=== PATIENT | male | born 1960 | race Caucasian/White ===

== ENCOUNTER 2016-04-18 12:30 | Observation (INO) | payer OTHER ==
[~2016-04-18] VITALS: Ht 175.3 cm; Wt 98.0 kg
[2016-04-18] VITALS (8 sets, daily range): BP systolic 127–166; BP diastolic 70–85; PULSE 60–78; RESP 14–20; TEMP 97.6–98.3; O2SAT 95–99
[~2016-04-18 12:30] MED LIST: ASPI325T PO; LISI-363 PO; METO25 PO; RANI150 PO; ROBA750T3 PO; Z.0.WALKERFRONT
[2016-04-18] MEDS ORDERED: ROBA750T PO (15:38)
[2016-04-18] MEDS ORDERED: LISI40TA PO (15:38)
[2016-04-18] MEDS ORDERED: ASPI325T PO (15:38)
[2016-04-18] MEDS ORDERED: METO25TA3 PO (15:38)
[2016-04-18] MEDS ORDERED: SODIUM CHLORIDE 0.9% FLUSH 5 ML FLUSH IVF PRN ×2 (15:45→16:45)
--- NOTE | 2016-04-18 15:50 | PD ---
HPI Chief Complaint: Chest Pain Time Seen by Provider: 15:42 Travel History International Travel<30 days: No Contact w/Intl Traveler<30days: No Traveled to known affect area: No History of Present Illness HPI 55-year-old white male presents to emergency Department with complaints of chest pain. The patient has a history of sick sinus syndrome, pacemaker, hypertension and borderline hypercholesterolemia, GERD. He states that he has been having intermittent chest pain now for the past 2 days. He states that he has not had chest pain in the past. He typically takes an aspirin a day. He did take his aspirin today. He presents without pain currently. He states that he has had several episodes lasting minutes at a time. He sometimes gets associated shortness of breath. He is had what he reports is a pain in his anterior chest, and sometimes a funny feeling in his left arm. The patient denies any associated nausea or vomiting. No diaphoresis. He states the pain came on at rest. He denies any exertional chest pain. He does have limited exercise tolerance due to chronic back pain and ambulates with a cane. 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 The patient states that he has seen Dr. fierro who had placed his pacemaker. He has not had a stress test or a cardiac catheterization in the past. PFSH Past Medical History Arthritis: Yes Asthma: Yes Anxiety: No Depression: No Heart Rhythm Problems: Yes (hx of murmur) Cancer: Yes (SKIN) Cardiovascular Problems: Yes (PACEMAKER ) High Cholesterol: Yes (hx of) Chest Pain: Yes Diabetes: No Endocrine: No Gastrointestinal Disorders: Yes (GERD) GERD: Yes Genitourinary: No Hepatitis: No Hiatal Hernia: No Hypertension: Yes Immune Disorder: No Implanted Vascular Access Dvce: Yes Musculoskeletal: Yes (ARTHRITIS, SP. STENOSIS) Neurologic: Yes (LEFT SCIATIC NERVE PAIN) Psychiatric: No Respiratory: Yes (ASTHMA HX) Thyroid Disease: No Tetanus Vaccination: > 5 Years Past Surgical History Abdominal Surgery: Yes (APPY) AICD: No Appendectomy: Yes Cardiac Surgery: Yes (BIOTRONIK PACEMAKER) Joint Replacement: No Pacemaker: Yes (BIOTRONIK) Other Surgery: Yes Family History Narrative Family History Father in his 70s of a stroke, history of coronary artery disease and RI. Mother is currently alive without heart disease. Family Myocardial Infarction: Yes Social History Alcohol Use: No Tobacco Use: No Substance Use: No Allergies-Medications (Allergen,Severity, Reaction): Coded Allergies: Toradol (Unverified Allergy, Unknown, "FLAT LINE', 01/10/16) Reported Meds & Prescriptions Reported Meds & Active Scripts Active Walker Front Wheel (Z.0.walkerfront) Device 1 Unit Zantac 150 Mg Tab (Ranitidine HCl) 150 Mg Tab 150 Mg PO Q12 Reported Lisinopril 40 Mg Tab 40 Mg PO DAILY Metoprolol Tartrate 25 Mg Tab 25 Mg PO BID Aspirin 325 Mg Tab 325 Mg PO ONCE Robaxin (Methocarbamol) 750 Mg Tab 750 Mg PO QID Robaxin-750 (Methocarbamol) 750 Mg Tab 750 Mg PO TID Metoprolol Tartrate 25 mg (Metoprolol Tartrate) 25 Mg Tab 25 Mg PO BID Aspirin 325 mg (Aspirin) 325 Mg Tab 325 Mg PO DAILY Lisinopril 20 mg (Lisinopril) 20 Mg Tab 40 Mg PO DAILY Review of Systems Except as stated in HPI: all other systems reviewed are Neg General / Constitutional: No: Fever, Chills Eyes: No: Blurred Vision, Pain HENT: No: Headaches, Sore Throat Cardiovascular: Positive: Chest Pain or Discomfort, No: Palpitations, Tachycardia, Diaphoresis, Dyspnea on exertion Respiratory: Positive: Shortness of Breath, No: Cough, Wheezing Gastrointestinal: No: Nausea, Vomiting, Abdominal Pain Genitourinary: No: Frequency, Dysuria Musculoskeletal: Positive: Myalgias, Arthralgias, Limited ROM, Cramping, Pain Skin: No Rash, No Itching Neurologic: Positive: Headache, No: Weakness, Paresthesia Psychiatric: No: Anxiety, Depression Physical Exam Narrative GENERAL: Well-developed, well-nourished in no apparent distress. Nontoxic appearing. HEAD: Normocephalic, atraumatic. EYES: Pupils equal round and reactive. Extraocular motions intact. No scleral icterus. No injection or drainage. ENT: Nose clear. Throat without erythema, tonsillar hypertrophy or exudate. Uvula midline. Airway patent. NECK: Trachea midline. Supple, nontender, moves head freely. No central bony tenderness or spasm. CARDIOVASCULAR: Regular rate and rhythm without murmurs, gallops, or rubs. CHEST: Nontender throughout without deformity or crepitance. No retractions or use of accessory muscles. RESPIRATORY: Clear to auscultation. Breath sounds equal bilaterally. No wheezes , rales, or rhonchi. GASTROINTESTINAL: Abdomen soft, non-tender, nondistended. No hepato-splenomegaly , or palpable masses. No guarding. EXTREMITIES: No clubbing, cyanosis, or edema. No joint tenderness. No calf tenderness. BACK: Nontender without deformity. No flank tenderness. NEUROLOGICAL: Awake, alert and oriented x 3 .Cranial nerves grossly intact. Motor and sensory grossly within normal limits. Normal speech. Data Data Last Documented VS Vital Signs Date Time Temp Pulse Resp B/P Pulse Ox O2 Delivery O2 Flow Rate FiO2 04/18/16 12:32 98.3 60 14 166/85 99 Room Air Orders Electrocardiogram (04/18/16 ) Basic Metabolic Panel (Bmp) (04/18/16 15:40) Ckmb (Isoenzyme) Profile (04/18/16 15:40) Complete Blood Count With Diff (04/18/16 15:40) Magnesium (Mg) (04/18/16 15:40) Prothrombin Time / Inr (Pt) (04/18/16 15:40) Act Partial Throm Time (Ptt) (04/18/16 15:40) Troponin I (04/18/16 15:40) Chest, Single Ap (04/18/16 15:40) Ecg Monitoring (04/18/16 15:40) Bilateral Bp Monitoring (04/18/16 15:40) Iv Access Insert/Monitor (04/18/16 15:40) Oximetry (04/18/16 15:40) Oxygen Administration (04/18/16 15:40) Sodium Chloride 0.9% Flush (Ns Flush) (04/18/16 15:45) CKMB (04/18/16 15:45) CKMB% (04/18/16 15:45) Labs Laboratory Tests Test 04/18/16 15:45 White Blood Count 8.9 TH/MM3 Red Blood Count 5.08 MIL/MM3 Hemoglobin 15.4 GM/DL Hematocrit 45.8 % Mean Corpuscular Volume 90.2 FL Mean Corpuscular Hemoglobin 30.4 PG Mean Corpuscular Hemoglobin 33.6 % Concent Red Cell Distribution Width 12.2 % Platelet Count 268 TH/MM3 Mean Platelet Volume 9.3 FL Neutrophils (%) (Auto) 65.8 % Lymphocytes (%) (Auto) 23.3 % Monocytes (%) (Auto) 8.6 % Eosinophils (%) (Auto) 1.6 % Basophils (%) (Auto) 0.7 % Neutrophils # (Auto) 5.9 TH/MM3 Lymphocytes # (Auto) 2.1 TH/MM3 Monocytes # (Auto) 0.8 TH/MM3 Eosinophils # (Auto) 0.1 TH/MM3 Basophils # (Auto) 0.1 TH/MM3 CBC Comment DIFF FINAL Differential Comment Prothrombin Time 10.5 SEC Prothromb Time International 1.0 RATIO Ratio Activated Partial 26.8 SEC Thromboplast Time Sodium Level 140 MEQ/L Potassium Level 4.0 MEQ/L Chloride Level 106 MEQ/L Carbon Dioxide Level 24.2 MEQ/L Anion Gap 10 MEQ/L Blood Urea Nitrogen 14 MG/DL Creatinine 1.05 MG/DL Estimat Glomerular Filtration 73 ML/MIN Rate Random Glucose 112 MG/DL Calcium Level 9.3 MG/DL Magnesium Level 2.1 MG/DL Total Creatine Kinase 189 U/L Troponin I LESS THAN 0.02 NG/ML MDM Medical Decision Making Medical Screen Exam Complete: Yes Emergency Medical Condition: Yes Medical Record Reviewed: Yes Interpretation(s) Laboratory Tests Test 04/18/16 15:45 White Blood Count 8.9 TH/MM3 Red Blood Count 5.08 MIL/MM3 Hemoglobin 15.4 GM/DL Hematocrit 45.8 % Mean Corpuscular Volume 90.2 FL Mean Corpuscular Hemoglobin 30.4 PG Mean Corpuscular Hemoglobin 33.6 % Concent Red Cell Distribution Width 12.2 % Platelet Count 268 TH/MM3 Mean Platelet Volume 9.3 FL Neutrophils (%) (Auto) 65.8 % Lymphocytes (%) (Auto) 23.3 % Monocytes (%) (Auto) 8.6 % Eosinophils (%) (Auto) 1.6 % Basophils (%) (Auto) 0.7 % Neutrophils # (Auto) 5.9 TH/MM3 Lymphocytes # (Auto) 2.1 TH/MM3 Monocytes # (Auto) 0.8 TH/MM3 Eosinophils # (Auto) 0.1 TH/MM3 Basophils # (Auto) 0.1 TH/MM3 CBC Comment DIFF FINAL Differential Comment Prothrombin Time 10.5 SEC Prothromb Time International 1.0 RATIO Ratio Activated Partial 26.8 SEC Thromboplast Time Sodium Level 140 MEQ/L Potassium Level 4.0 MEQ/L Chloride Level 106 MEQ/L Carbon Dioxide Level 24.2 MEQ/L Anion Gap 10 MEQ/L Blood Urea Nitrogen 14 MG/DL Creatinine 1.05 MG/DL Estimat Glomerular Filtration 73 ML/MIN Rate Random Glucose 112 MG/DL Calcium Level 9.3 MG/DL Magnesium Level 2.1 MG/DL Total Creatine Kinase 189 U/L Troponin I LESS THAN 0.02 NG/ML EK% paced rhythm with a dual-chamber pacer ventricular rate of 60 Differential Diagnosis Medical decision making: High Differential diagnosis: Angina, RI, unstable angina, pneumonia, electrolyte abnormality, GERD, noncardiac chest pain Narrative Course The patient's EKG today is a 100% paced rhythm at 60. He is alert he taken a 325 aspirin earlier this morning. The patient is currently pain-free. The patient states that he's been having intermittent pain now for the past 2 days. His is nonexertional in nature and lasts only a few minutes and resolves spontaneously. He does have a history of GERD has not taken any medications recently. I discussed with the patient and her observation period in the chest pain center with potential stress testing. The patient reminds me that he has limited mobility and walks with a cane. This is chest pain Diagnosis Primary Impression: Chest pain Qualified Code: R07.9 - Chest pain, unspecified type Condition: Arun Mac Apr 18, 2016 15:50
[2016-04-18 16:09] LABS: AUTOMATED NEUTROPHIL # 5.9 TH/MM3 (1.8-7.7); BASOPHIL # 0.1 TH/MM3 (0-0.2); BASOPHIL % 0.7 % (0.0-2.0); EOSINOPHIL # 0.1 TH/MM3 (0-0.4); EOSINOPHIL % 1.6 % (0.0-4.0); HEMATOCRIT 45.8 % (39.0-51.0); HEMO FLAGS DIFF FINAL; LYMPH % 23.3 % (9.0-44.0); LYMPHOCYTE # 2.1 TH/MM3 (1.0-4.8); MEAN CELL VOLUME 90.2 FL (80.0-100.0); MEAN CORPUSCULAR HEMOGLOBIN 30.4 PG (27.0-34.0); MEAN CORPUSCULAR HGB CONC 33.6 % (32.0-36.0); MONO % 8.6 % (0.0-8.0); NEUT % 65.8 % (16.0-70.0); PLATELET COUNT 268 TH/MM3 (150-450); RED BLOOD COUNT 5.08 MIL/MM3 (4.50-5.90); RED CELL DISTRIBUTION WIDTH 12.2 % (11.6-17.2); WHITE BLOOD COUNT 8.9 TH/MM3 (4.0-11.0)
--- NOTE | 2016-04-18 16:15 | RADRPT ---
EXAM DATE/TIME: 04/18/2016 15:46 [facility] COMPARISON: CHEST SINGLE AP, May 04, 2014, 9:31. INDICATIONS : Chest pain. MEDICAL HISTORY : None. SURGICAL HISTORY : Pacemaker. ENCOUNTER: Initial ACUITY: 1 day PAIN SCORE: 8/10 LOCATION: Bilateral chest FINDINGS: A single view of the chest demonstrates the lungs to be symmetrically aerated without evidence of mas s, infiltrate or effusion. The cardiomediastinal contours are unremarkable. There is a pacemaker ov erlying the left chest. Osseous structures are intact. No significant [facility]. CONCLUSION: No acute disease. No significant change has occurred. Wilfred Novak MD on April 18, 2016 at 16:13 Board Certified Radiologist. This report was verified electronically.
[2016-04-18 16:20] LABS: APTT (PATIENT) 26.8 SEC (24.3-30.1); PROTHROMBIN TIME - PATIENT 10.5 SEC (9.8-11.6)
[2016-04-18 16:29] LABS: ANION GAP 10 MEQ/L (5-15); BICARBONATE 24.2 MEQ/L (21.0-32.0); BLOOD UREA NITROGEN 14 MG/DL (7-18); CHLORIDE 106 MEQ/L (98-107); GLOMERULAR FILTRATION RATE 73 ML/MIN (>89); MAGNESIUM 2.1 MG/DL (1.5-2.5); SODIUM (NA) 140 MEQ/L (136-145)
[2016-04-18 16:32] LABS: CREATINE KINASE 189 U/L (39-308)
[2016-04-18 16:44] LABS: CKMB 0.9 NG/ML (0.5-3.6)
[2016-04-18 19:46] LABS: CREATINE KINASE 162 U/L (39-308)
[2016-04-18 20:22] LABS: CKMB 1.3 NG/ML (0.5-3.6)
[2016-04-18] MEDS: SODIUM CHLORIDE 0.9% FLUSH 5 ML FLUSH IVF SCH (21:00)
[2016-04-19] VITALS (7 sets, daily range): BP systolic 101–140; BP diastolic 54–81; PULSE 63–70; RESP 16–20; TEMP 96.4–98; O2SAT 95–96
[2016-04-19] MEDS: SODIUM CHLORIDE 0.9% FLUSH 5 ML FLUSH IVF SCH (09:29)
[2016-04-19] MEDS ORDERED: LISINOPRIL 20 MG TAB PO SCH (12:00)
--- NOTE | 2016-04-19 12:46 | MH ---
cc: RAUL SHEPHERD MD DATE OF ADMISSION: 04/18/2016 DATE OF 1960 CHIEF COMPLAINT Chest pain HISTORY OF PRESENT ILLNESS This is a 55-year-old male who presented to the ED via private vehicle complaining of three days of developing chest pain three days ago. It began while he was at work. It was left-sided and lasted a couple minutes. It recurred the next day lasting also a couple minutes. Then it became more frequent yesterday recurring quite often, but still lasted two minute or less. He has had no associated shortness, nausea or diaphoresis with the symptoms. Denies any history of CAD. PAST HISTORY 1. He has a history of six sinus syndrome. 2. He has a pacemaker. 3. History of chronic back pain. 4. Hypertension 5. Denies hyperlipidemia, diabetes or known CAD. FAMILY HISTORY He is not really not sure about family history of CAD. SOCIAL HISTORY Does not smoke, drink alcohol, or use illicit drugs. PAST SURGICAL HISTORY Pacemaker. ALLERGIES TORADOL MEDICATIONS Include: 1. Lisinopril 40 mg daily 2. Metoprolol Tartrate 25 mg twice daily 3. Robaxin 750 mg 4 time a day for spasms 4. A full strength aspirin REVIEW OF SYSTEMS GENERAL: Denies fevers or chills. Denies recent illnesses. HEENT: Denies headache, earache, sore throat or difficulty swallowing. CARDIOVASCULAR: Describes the discomfort as mentioned above. Denies diaphoresis. Denies sensation of heart beating rapidly or irregularly. Denies syncope. RESPIRATORY: Denies shortness of breath or inspirational chest discomfort. Denies coughing, wheezing or hemoptysis. GI: Denies nausea, vomiting, diarrhea, abdominal pain or blood in the stool. MUSCULOSKELETAL: Denies joint pain or edema. Denies calf pain or edema. NEUROVASCULAR: Denies headache or dizziness. ENDOCRINE: Denies polyuria or polydipsia. HEMATOLOGIC: No easy bruising. SKIN: Denies rash or itching. PHYSICAL EXAMINATION VITAL SIGNS: In emergency room initially included a blood pressure 166/85, heart rate 60, respirations 14, pulse oximetry 90% on room air and he was afebrile. Most recent vital signs include a blood pressure 132/81, heart rate 66, respirations 16, pulse oximetry 95% on room air and he was afebrile. GENERAL: The patient seen in the examination room in no apparent distress. He is pleasant. He speaks in clear and complete sentences. HEENT: Head is atraumatic, normocephalic. NECK: Supple without lymphadenopathy and trachea is midline. No JVD or carotid bruit. CARDIOVASCULAR: Cardiovascular: Regular rhythm without murmur, gallop or rub. RESPIRATORY: Lungs are clear to auscultation bilaterally. No wheezing, rales or rhonchi. No reproducible chest wall discomfort. No use of accessory muscles. GI: Abdomen is nontender and nondistended. Bowel sounds are normal. No guarding or rebound. No obvious pulsatile mass or bruit. No CVA tenderness. Strong femoral pulses bilaterally. MUSCULOSKELETAL: Patient moving upper and lower stress freely. No joint tenderness or edema. No calf tenderness or edema, Homans' sign. Strong pulses upper and lower extremities. He has some discomfort with movement of his low back which is chronic. NEUROVASCULAR: The patient is alert and oriented. Cranial II XII are grossly intact. There is no focal deficit and speech is clear. SKIN: No rashes and turgor is normal. LABORATORY DATA CBC is unremarkable. Coagulation studies are unremarkable. Basic metabolic panel essentially was unremarkable. Glucose is mildly elevated at 112 and GFR is somewhat decreased at 73. Serial cardiac enzymes normal x3. Single view chest x-ray read by radiologist as no acute disease. No significant changes have occurred. EKG's have sinus rhythm with atrial pacing. No significant ST segment depression or elevation. ASSESSMENT AND PLAN 1. Chest pain: The patient had serial cardiac enzymes and EKG's for ruling out purposes. He was seen by Dr. Raul Shepherd of cardiology in the chest pain center. He will undergo a Lexiscan. If that were to be unremarkable, he will be discharged home with instructions to follow up with a local physician and his director community organization. 2. Hypertension: Continue current medication. 3. Pacemaker: The patient continues to follow up with his director community organization who maintain his pacemaker. 4. The patient is stable at this time. He is agreeable to this plan. Dictated by ELIEZER Castelan MD JORDY Montague/SOFIE 11:54 AM /12:39 PM
[2016-04-19] MEDS ORDERED: METHOCARBAMOL 500 MG TAB PO SCH (13:00)
[2016-04-19] MEDS ORDERED: REGADENOSON INJ 0.4 MG/5 ML SYR ONE (13:05)
--- NOTE | 2016-04-19 13:20 | EKG ---
Date Performed: 04/18/2016 Time Performed: 21:34:52 PTAGE: 55 years EKG: Sinus rhythm NORMAL ECG PREVIOUS TRACING : 04/18/2016 18.39 sinus now present DOCTOR: Dwayne Shepherd Interpretating Date/Time 04/19/2016 13:18:53
--- NOTE | 2016-04-19 14:35 | RADRPT ---
EXAM DATE/TIME: 04/19/2016 12:40 [facility] COMPARISON: No previous studies available for comparison. INDICATIONS : Chest pain with dyspnea for 3 days. Angina. DOSE: 25.4 mCi Tc99m Myoview at stress. 8.5 mCi Tc99m Myoview at rest. 0.4 mg Lexiscan STRESS SYMPTOMS: Dyspnea. EJECTION FRACTION: 63% MEDICAL HISTORY : Hypercholesterolemia. Hypertension. Gastroesophageal reflux disease. Asthma. SURGICAL HISTORY : Appendectomy. Pacemaker. ENCOUNTER: Initial ACUITY: 3 days PAIN SCALE: 5/10 LOCATION: Substernal chest TECHNIQUE: The patient underwent pharmacologic stress with infusion of prescribed dose. Continuous ECG tracing was monitored during stress. Gated SPECT imaging was performed after stress and conventional SPECT i maging was performed at rest. The examination was performed on a SPECT/CT scanner, both attenuation and non-corrected datasets were reviewed. FINDINGS: DISTRIBUTION: The maximum perfused segment at stress is in the anterolateral wall. PERFUSION STUDY: The pattern of perfusion at stress is within normal limits. GATED STUDY: There is intact wall motion and thickening without hypokinetic or dyskinetic segments. CONCLUSION: 1. No reversible perfusion defect to indicate stress-induced myocardial ischemia identified. RISK CATEGORY: Low (<1% Annual Mortality Rate) Andres Allan MD on April 19, 2016 at 14:33 Board Certified Radiologist. This report was verified electronically.
--- NOTE | 2016-04-19 14:50 | HHI.DCPOC ---
Discharge Care Plan Diagnosis: (1) Chest pain (2) Hypertension (3) Chronic back pain Goals to Promote Your Health * To prevent worsening of your condition and complications * To maintain your health at the optimal level Directions to Meet Your Goals Take your medications as prescribed Follow your dietary instruction Follow activity as directed Keep your appointments as scheduled Take your immunizations and boosters as scheduled If your symptoms worsen call your PCP, if no PCP go to Urgent Care Center or Emergency Room Smoking is Dangerous to Your Health. Avoid second hand smoke Call the 24-hour hour crisis hotline for domestic abuse at Davian Mora Apr 19, 2016 14:50
--- NOTE | 2016-04-19 15:26 | EKG ---
Date Performed: 04/18/2016 Time Performed: 18:39:03 PTAGE: 55 years EKG: ELECTRONIC ATRIAL PACEMAKER BORDERLINE LEFT AXIS DEVIATION ABNORMAL RHYTHM ECG PREVIOUS TRACING : 04/18/2016 13.23 Since previous tracing, no significant change noted DOCTOR: Dwayne Shepherd Interpretating Date/Time 04/19/2016 15:25:41
--- NOTE | 2016-04-19 15:29 | EKG ---
Date Performed: 04/18/2016 Time Performed: 13:23:55 PTAGE: 55 years EKG: ELECTRONIC ATRIAL PACEMAKER ELECTRONIC VENTRICULAR PACEMAKER ABNORMAL RHYTHM ECG PREVIOUS TRACING : 05/04/2014 09.12 Since previous tracing, ventricular pacing is new DOCTOR: Dwayne Shepherd Interpretating Date/Time 04/19/2016 15:28:42
--- NOTE | 2016-04-19 15:32 | TR ---
Date Performed: 04/19/2016 Time Performed: 12:59:08 DOCTOR: Dwayne Shepherd DRUG LIST: CLINICAL HISTORY: CHEST PAIN REASON FOR TEST: CHEST PAIN REASON FOR ENDING: OBSERVATION: CONCLUSION: Lexiscan stress test was performed under standard four minute protocol. Radionucl[place] e was injected one minute prior to ending the test. No electrocardiographic abormalities were present to suggest ischemia. Nuclear imaging and interpretation are pending. COMMENTS:
[2016-04-19] MEDS ORDERED: METOPROLOL TARTRATE 25 MG TAB PO SCH (21:00)
== END 2016-04-19 16:53 | disposition home or self-care (01) ==
LOC: NEPA 12:30 → NEDA 16:44 → NEPHCDU 20:28
PROVIDERS: ADMIT Internal Medicine Interventional Cardiology; ATTEND Internal Medicine Interventional Cardiology
DX: R07.9 Chest pain, unspecified (principal); K21.9 Gastro-esophageal reflux disease without esophagitis; I10 Essential (primary) hypertension; E78.00 Pure hypercholesterolemia, unspecified; I49.5 Sick sinus syndrome; R06.02 Shortness of breath; R01.1 Cardiac murmur, unspecified; Z79.899 Other long term (current) drug therapy; Z95.0 Presence of cardiac pacemaker; G89.29 Other chronic pain; M54.9 Dorsalgia, unspecified
CPT/HCPCS: 71010; 78452; 80048; 82550; 82552; 83735; 84484; 85025; 85610; 85730; 93005; 93017; 99285; A9502; G0378; J2785